=== PATIENT | male | born 1980 | race Caucasian/White ===

== ENCOUNTER 2023-03-08 08:14 | Emergency (ER) | payer OTHER, SELFPAY ==
[2023-03-08 08:25] VITALS: BP 140/83; PULSE 73; RESP 18; TEMP 36.6; O2SAT 99
--- NOTE | 2023-03-08 08:57 | ED.GENADULT ---
HPI - General Adult General Chief complaint: Eye Problems Stated complaint: Right Eye Problem Source: patient Mode of arrival: ambulatory Limitations: no limitations History of Present Illness HPI narrative: Patient presents for evaluation of right eye irritation. Symptom onset last night. Reports redness, tearing, crusted drainage in the affected eye. He denies any visual disturbance. He does not wear glasses or contacts. No recent exposures to pink eye. No sick contacts to his knowledge. Related Data Allergies Allergy/AdvReac Type Severity Reaction Status Date / Time No Known Allergies Allergy Unknown Unverified 05/30/18 10:32 Review of Systems Review of Systems: CONSTITUTIONAL: Denies fever, chills, or sweats. EYES: Reports right eye irritation, redness, tearing and crusted drainage upon waking for the day. Denies pain or itching to right eye. Denies visual disturbance. ENT: Denies rhinorrhea, congestion, sore throat, or otalgia. CARDIOVASCULAR: Denies chest pain, palpitations, or edema. RESPIRATORY: Denies cough or dyspnea. GASTROINTESTINAL: Denies abdominal pain, nausea, vomiting, or diarrhea. GENITOURINARY: Denies dysuria or hematuria. SKIN: Denies rash or itching. MUSCULOSKELETAL: Denies back pain, joint pain, or myalgia. NEUROLOGIC: Denies headache, numbness, dizziness, or weakness. PSYCHIATRIC: Denies anxiety or depression. [facility] Past Medical History Medical History No pertinent past medical history Surgical History Surgical History History of shoulder surgery Family History Family History Mother Family history non-contributory Social History Social History Smoking status: Never smoker Substance use: never Living arrangements: with family Gender identity (if verbalized by the patient): Male Sexual Orientation (if Verbalized by the Patient): Straight or Heterosexual Spiritual care concerns: No Exam Narrative: GENERAL: Well-appearing, well-nourished, and in no acute distress. HEAD: Normocephalic, atraumatic. EYES: Mild right conjunctival injection with tearing and some yellow crusted drainage to right eyelashes. PERRLA and EOMI. ENT: Nares clear, no rhinorrhea or epistaxis. Mucous membranes moist. Oropharynx without tonsillar hypertrophy exudate or other lesions. Bilateral TMs pearly alonso nonbulging NECK: Supple. No adenopathy or masses. No carotid bruits or JVD CHEST: Clear to auscultation. No respiratory distress. No wheezes rales or rhonchi HEART: Regular rate and rhythm. No murmur heard. Normal peripheral pulses. ABDOMEN: Soft, nontender, nondistended, normal active bowel sounds. EXTREMITIES: Normal range of motion. No edema. SKIN: Warm, dry, no rash. NEURO: No focal deficits. Alert and oriented x3. PSYCH: Normal mood and affect. Course Course Emergency Course: This is a 42-year-old male who presented for evaluation of right eye irritation. Exam is consistent with conjunctivitis. Will discharge with erythromycin. Instructed on hand hygiene. Follow up with primary provider. Go to the emergency department for visual disturbance or worsening symptoms. Patient in agreement with plan of care. Level of Care: Express Care Visit Discharge Plan Discharge Clinical Impression: Conjunctivitis Qualifiers: Conjunctivitis type: acute Acute conjunctivitis type: unspecified Patient Disposition: Home, Self-Care Condition: Stable Instructions: Antibiotic Form, Conjunctivitis (ED) Patient Language: Kosovan Prescriptions: New erythromycin 5 mg/gram (0.5 %) ointment 1 applic EACH EYE Q6H 7 Days Qty: 3.5 0RF Follow-up/Referrals: Gabe,MD Pablo [Primary Care Provider] - Time of Disposition: 08:55
== END 2023-03-08 09:01 | disposition home or self-care (01) ==
PROVIDERS: Emergency Provider Nurse Practitioner; PCP Hospitalist
DX: H10.9 Unspecified conjunctivitis (principal)
CPT/HCPCS: 99203; G0463